=== PATIENT | male | born 2000 | race Caucasian/White ===

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

== ENCOUNTER 2022-02-04 10:14 | Emergency (ER) | payer MEDICAID, SELFPAY ==
[2022-02-04 11:32] VITALS: BP 141/91; PULSE 80; RESP 18; TEMP 36.9; O2SAT 99; BMI 34.8
--- NOTE | 2022-02-04 11:40 | HMH.EDUTC ---
[facility] [place] Disposition Clinical Impression: Otitis media Qualifiers: Otitis media type: suppurative Chronicity: acute Laterality: bilateral Recurrence: non-recurrent Spontaneous tympanic membrane rupture: without spontaneous rupture Qualified Code(s): H66.003 - Acute suppurative otitis media without spontaneous rupture of ear drum, bilateral Disposition: Home, Self-Care Condition on Discharge: Good Instructions: Middle Ear Infection Additional Instructions: Drink plenty of fluids. Take tylenol or ibuprofen for pain or fever. Take the medications as directed. Follow up with your regular doctor. GO TO THE ER FOR ANY WORSENING SYMPTOMS Throw your tooth brush away and get a new one. Prescriptions: methylPREDNISolone [Medrol] 4 mg PO DIRECTED 6 Days #21 packet Transmission Status: Received by [facility] Cefdinir [Omnicef 300mg Capsule] 300 mg PO BID #20 cap Transmission Status: Received by [facility] Referrals: Vianney Poole MD [Primary Care Provider] - Forms: Work/School Release Time of Disposition: 12:15 Medical Decision Making - Medical Records Medical records reviewed: No: I reviewed the patient's medical records. - Fritz Inquiry Pt receiving controlled substance: No Vital Signs: 02/04/22 11:32 02/04/22 12:20 Temperature 98.4 F 98.4 F Temperature Source Oral Pulse Rate 80 Pulse Rate [Right Brachial] 80 Respiratory Rate 18 18 Blood Pressure 141/91 H Blood Pressure [Right Arm] 141/91 H Blood Pressure Mean [Right Arm] 107 Blood Pressure Source [Right Arm] Automatic Cuff Blood Pressure Position [Right Arm] Sitting 02 Sat by Pulse Oximetry 99 [facility] [place] HPI - General Stated complaint: lt ear pain Time Seen by Provider: 02/04/22 11:41 Description of Symptoms (Recalled from Triage Doc. by RN): pt c/o left ear pain that started yesterday morning HEENT Symptoms (Recalled from RN notes): Yes Resp Symptoms (Recalled from RN notes): No Skin Symptoms (Recalled from RN notes): No MS Symptoms (Recalled from RN notes): No Functional Status (Recalled from RN notes): wnl - History of Present Illness Provider Complaint: He has had right ear pain for the past 2 days. HE gets ear infections frequently. They deny any fever or chills or body aches. - Related Data Previous Rx's Medication Instructions Recorded Cefdinir [Omnicef 300mg Capsule] 300 mg PO BID #20 cap 02/04/22 methylPREDNISolone [Medrol] 4 mg PO DIRECTED 6 Days #21 02/04/22 packet Allergies Allergy/AdvReac Type Severity Reaction Status Date / Time Penicillins Allergy Mild Verified 12/22/21 15:07 - Worker's Comp Is this a Worker's Comp case?: No [facility] History - Hepatitis A Screen Drug use history?: No High risk sexual behaviors?: No History of sexually transmitted infection?: No Currently employed?: No Childcare worker?: No Do you have indoor plumbing?: Yes Do you have electricity?: Yes Attestation statement:: This patient has been screened for Hepatitis A risk factors. I have reviewed the patient's past medical history: Yes - Social History Smoking Status: Current every day smoker Alcohol Intake: never Occupational Status: disabled Household Members: family ROS Obtained: Yes All systems reviewed & no additional complaints - Constitutional Constitutional: Reports system reviewed and no additional complaints, except as docu - Eyes Eyes: Reports system reviewed and no additional complaints, except as docu - ENT Ears, Nose, Mouth, and Throat: Reports as per HPI - Cardiovascular Cardiovascular: Denies chest pain - Respiratory Respiratory: Denies chest congestion, Reports cough Physical Exam - General General appearance: alert, in no apparent distress - Head Head exam: atraumatic, normocephalic, normal inspection - Eye Eye exam: Present: normal appearance, PERRL, EOMI - ENT ENT exam: Present: mucous membranes moist, normal external ear exam -
[2022-02-04 12:20] VITALS: BP 141/91; PULSE 80; RESP 18; TEMP 36.9; O2SAT 99
== END 2022-02-04 12:20 | disposition home or self-care (01) ==
PROVIDERS: Emergency Provider Nurse Practitioner Family; PCP Family Medicine
DX: H66.003 Acute suppurative otitis media without spontaneous rupture of ear drum, bilateral (principal)
CPT/HCPCS: 99212; G0463

== ENCOUNTER 2022-03-14 18:35 | Emergency (ER) | payer MEDICAID, SELFPAY ==
[2022-03-14 18:35] VITALS: BP 145/84; PULSE 76; RESP 19; TEMP 36.6; O2SAT 100; BMI 34.8
--- NOTE | 2022-03-14 19:03 | HMH.EDUTC ---
[facility] [place] Disposition Clinical Impression: Left otitis media Disposition: Home, Self-Care Condition on Discharge: Good Instructions: DI for Otitis Media (Middle Ear Infection)-Child Prescriptions: Cefdinir [Omnicef 300mg Capsule] 300 mg PO BID #20 cap Transmission Status: Pending to [id number] Referrals: Debbie Yap APRN [Primary Care Provider] - Time of Disposition: 19:11 Medical Decision Making - Fritz Inquiry Pt receiving controlled substance: No Vital Signs: 03/14/22 18:35 Temperature 97.8 F Temperature Source Oral Pulse Rate [Right Brachial] 76 Respiratory Rate 19 Blood Pressure [Right Arm] 145/84 H Blood Pressure Mean [Right Arm] 104 Blood Pressure Source [Right Arm] Automatic Cuff Blood Pressure Position [Right Arm] Sitting 02 Sat by Pulse Oximetry 100 Oxygen Delivery Method Room Air [facility] [place] HPI - General Stated complaint: Left ear pain Time Seen by Provider: 03/14/22 19:03 Mode of Arrival: Ambulatory Source of Information: Patient, Parent(s) Limitations: No Limitations Description of Symptoms (Recalled from Triage Doc. by RN): PATIENT C/O BILATERAL EAR PAIN X 2 WEEKS HEENT Symptoms (Recalled from RN notes): Yes Resp Symptoms (Recalled from RN notes): No Skin Symptoms (Recalled from RN notes): No MS Symptoms (Recalled from RN notes): No Functional Status (Recalled from RN notes): WNL - History of Present Illness Provider Complaint: Left ear pain X 2 weeks. No fever. History of ear infections. Patient has autism and does not verbalize pain until it is quite severe. Onset (ago): week(s) (2) Relieving factors: none Exacerbating factors: none Associated symptoms: denies other symptoms Treatments prior to arrival: none - Related Data Previous Rx's Medication Instructions Recorded Cefdinir [Omnicef 300mg Capsule] 300 mg PO BID #20 cap 02/04/22 methylPREDNISolone [Medrol] 4 mg PO DIRECTED 6 Days #21 02/04/22 packet Cefdinir [Omnicef 300mg Capsule] 300 mg PO BID #20 cap 03/14/22 Allergies Allergy/AdvReac Type Severity Reaction Status Date / Time Penicillins Allergy Mild Verified 12/22/21 15:07 poison lisa extract Allergy Verified 03/14/22 18:51 VACCINES Allergy Uncoded 03/14/22 18:51 - Worker's Comp Is this a Worker's Comp case?: No [facility] History - Hepatitis A Screen Drug use history?: No High risk sexual behaviors?: No History of sexually transmitted infection?: No Currently employed?: No Childcare worker?: No Do you have indoor plumbing?: Yes Do you have electricity?: Yes Attestation statement:: This patient has been screened for Hepatitis A risk factors. I have reviewed the patient's past medical history: Yes - Social History Smoking Status: Current every day smoker Alcohol Intake: never Occupational Status: disabled Household Members: family ROS Obtained: Yes All systems reviewed & no additional complaints - ENT Ears, Nose, Mouth, and Throat: Reports otalgia Physical Exam - General General appearance: alert, in no apparent distress - Head Head exam: normocephalic - Eye Eye exam: Present: PERRL - ENT ENT exam: Present: normal oropharynx - Expanded ENT Exam TM/Canal exam: Left TM: erythema, bulging Nose exam: Absent: sinus tenderness - Respiratory Respiratory exam: Present: normal lung sounds bilaterally - Cardiovascular Cardiovascular exam: Present: regular rate, normal rhythm - Neurological Exam Neurological exam: Present: alert, oriented X3 - Psychiatric Psychiatric exam: Present: normal affect, normal mood - Skin Skin exam: Present: warm, dry, intact
[2022-03-14 19:09] VITALS: BP 145/84; PULSE 76; RESP 19; TEMP 36.6; O2SAT 100
== END 2022-03-14 19:13 | disposition home or self-care (01) ==
PROVIDERS: Emergency Provider Physician Assistant; PCP Nurse Practitioner
DX: H66.92 Otitis media, unspecified, left ear (principal); Z88.0 Allergy status to penicillin; F17.210 Nicotine dependence, cigarettes, uncomplicated
CPT/HCPCS: 99212; G0463

== ENCOUNTER 2023-01-24 09:09 | Emergency (ER) | payer MEDICARE, MEDICAID, SELFPAY ==
[2023-01-24 10:00] VITALS: BP 154/94; PULSE 107; RESP 20; TEMP 37.3; O2SAT 99; BMI 37.6
[2023-01-24 10:21] LABS: UTC Strep Screen (Rapid) Negative (Negative)
--- NOTE | 2023-01-24 10:25 | EXP.UTC ---
Discharge Plan Disposition Patient Disposition: Home, Self-Care Condition: Good Prescriptions Prescriptions: New azithromycin [Zithromax Z-Michael] 250 mg tablet See Rx Instructions .ROUTE .COMPLEX 5 Days Qty: 6 0RF Rx Instructions: For 250 mg dose pack: take 500 mg today (day 1), then 250 mg for 4 days (days 2-5) No Action rizatriptan 10 mg tablet 10 mg PO DAILY imipramine HCl 10 mg tablet 10 mg PO DAILY Ubrelvy 100 mg tablet 100 mg PO DAILY Referrals Follow up/Referrals: Debbie Yap APRN [Primary Care Provider] - See instructions Activity Restrictions/Add. Instructions Additional Instructions/Restrictions: *Monitor Temp, Over the counter Motrin or Tylenol as directed/as needed Tylenol every 4 hours and Motrin every 6 hours (as long as your family doctor has told you that you can take it) for fever or pain. and straight to ER if unable to lower temp less than 101.0 after medication given *Warm salt water gargles may help to soothe the throat *Throat Lozenges? *Warm fluids like tea with honey may help to soothe the throat? *Sleep elevated *Humidifier/Vaporizer Your throat swab was sent for culture. Those results are typically sent to your primary care. Be sure to follow up in 2-3 days with your family doctor/primary care physician if no improvement so they can review those result and treat if necessary. If you don?t have a primary care doctor, I recommend you get one but in the mean time, you will have to return to a walk in clinic Follow up IMMEDIATELY for new or worsening symptoms or no Noticeable improvement over the next 48-72 hours. 911 for difficulty breathing or swallowing Clinical Impressions Clinical Impression: Pharyngitis Instructions Patient Instructions: Sore Throat Discharge ED Provider: Dennise Franco [facility] [place] HPI General Stated complaint: sore throat, SOA Mode of Arrival: Ambulatory Source of Information: Patient Limitations: No Limitations Time Seen by Provider: 01/24/23 10:25 Description of Symptoms (Recalled from Triage Doc. by RN): sore throat HEENT Symptoms (Recalled from RN notes): Yes Resp Symptoms (Recalled from RN notes): No Skin Symptoms (Recalled from RN notes): No MS Symptoms (Recalled from RN notes): No Functional Status (Recalled from RN notes): n/a History of Present Illness Provider Complaint: Mother states that he has been complaining of sore throat for several days and hurts his throat when he swallows or breaths States that his throat feels sore and raw so mother brought him in worried that he may have strep throat Related Data Home Medications Medication Instructions Recorded Confirmed imipramine HCl 10 mg tablet 10 mg PO DAILY . 01/24/23 01/24/23 rizatriptan 10 mg tablet 10 mg PO DAILY . 01/24/23 01/24/23 ubrogepant 100 mg tablet (Ubrelvy) 100 mg PO DAILY . 01/24/23 01/24/23 Previous Rx's Medication Instructions Recorded azithromycin 250 mg tablet See Rx Instructions PO .COMPLEX 5 01/24/23 (Zithromax Z-Michael) days #6 tabs Allergies Allergy/AdvReac Type Severity Reaction Status Date / Time Penicillins Allergy Mild Verified 01/24/23 10:22 oxcarbazepine Allergy Verified 01/24/23 10:22 [From Trileptal] phenytoin [From Dilantin] Allergy Verified 01/24/23 10:22 poison lisa extract Allergy Verified 01/24/23 10:22 VACCINES Allergy Uncoded 03/14/22 18:51 Worker's Comp Is this a Worker's Comp case?: No [facility] Disclaimer: The information contained in this section may have been updated after the patient was seen, as this information can be updated by other users. Medical History (Updated 01/24/23 @ 11:13 by Dennise Franco APRN) Seizure Social History Smoking Status: Current every day smoker alcohol intake: never current occupational status: disabled Travel in the last 8 weeks: None household members: family BANDAR Oneal
[2023-01-24 11:08] LABS: Monoscreen (Rapid) Negative (Negative)
[2023-01-24 11:30] VITALS: BP 154/94; PULSE 107; RESP 20; TEMP 37.3; O2SAT 99
== END 2023-01-24 11:19 | disposition home or self-care (01) ==
PROVIDERS: Emergency Provider Nurse Practitioner; PCP Nurse Practitioner
DX: J02.9 Acute pharyngitis, unspecified (principal)
CPT/HCPCS: 86318; 87880; 99212; G0463